=== PATIENT | male | born 1995 | race Caucasian/White ===

== ENCOUNTER → 2016-10-22 | Outpatient (CLI) | payer OTHER ==
[2016-10-22 15:51] LABS: HEMATOCRIT 45.8 % (42-52); MEAN CELL VOLUME 79.1 fL (80-100); MEAN CORPUSCULAR HEMOGLOBIN 26.6 pg (25-34); MEAN CORPUSCULAR HGB CONC 33.6 g/dl (32-36); MEAN PLATELET VOLUME 11.9 fL (7.4-10.4); PLATELET COUNT 204 K/uL (130-400); RED BLOOD COUNT 5.79 M/uL (4.7-6.1); WHITE BLOOD COUNT 7.87 K/uL (4.8-10.8)
[2016-10-22 16:23] LABS: ALT/SGPT 66 U/L (12-78); AST/SGOT 35 U/L (15-37); BLOOD UREA NITROGEN 6 mg/dl (7-18); BUN/CREATININE RATIO 7.5 (10-20); CALCIUM 8.9 mg/dl (8.5-10.1); CARBON DIOXIDE 30 mmol/L (21-32); CHLORIDE 107 mmol/L (98-107); GLUCOSE 86 mg/dl (70-99); POTASSIUM 4.2 mmol/L (3.5-5.1); SODIUM 142 mmol/L (136-145)
[2016-10-22 16:26] LABS: ALB/GLOB RATIO 1.4 (0.9-2); ALKALINE PHOSPHATASE 164 U/L (45-117); CHOLESTEROL 118 mg/dl (0-200); CHOLESTEROL/HDL RATIO 4.1; HDL CHOLESTEROL 29 mg/dl; LDL CHOLESTEROL CALCULATED 72 mg/dl; TRIGLYCERIDES 85 mg/dl (0-150); VERY LOW DENSITY LIPOPROT CALC 17 mg/dl
== END | disposition home or self-care (01) ==
LOC: C.LAB1850 14:40
PROVIDERS: ATTEND Internal Medicine
DX: Z00.00 Encounter for general adult medical examination without abnormal findings (principal); M06.9 Rheumatoid arthritis, unspecified

== ENCOUNTER → 2016-10-28 | Outpatient (CLI) | payer OTHER ==
--- NOTE | 2016-10-28 15:39 | DIAGNOSTIC IMAGING REPORT ---
LEFT WRIST MIN 3 VIEWS ROUTINE CLINICAL HISTORY: RHEUMATOID ARTHRITIS pain. X-rays. COMPARISON: None. DISCUSSION: Moderate degenerative change throughout all major structures of the radiocarpal as well as intercarpal region. No marginal erosions. No abnormal soft tissue calcifications. Bony alignment is anatomic. There is no evidence for soft tissue swelling. IMPRESSION: Moderate degenerative change. No acute bony abnormality. Electronically signed by: Alex Peck M.D. 10/28/2016 3:36 PM Dictated Date/Time: 10/28/2016 3:36 PM
--- NOTE | 2016-10-28 15:40 | DIAGNOSTIC IMAGING REPORT ---
LEFT HIP UNILATERAL 2 VIEWS CLINICAL HISTORY: QSTEOARTHRISTIS OF HIPS pain COMPARISON: None. DISCUSSION: Moderate flattening of the superior articular surface of the femoral head. Mild reactive sclerosis and flattening of the superior acetabular margin. This appears represent a component of degenerative change superimposed upon pre-existing dysplastic change. There is no evidence for acetabular protrusion. There is no evidence for soft tissue swelling. IMPRESSION: Moderate degenerative change left hip superimposed upon pre-existing dysplastic change. No acute process. Electronically signed by: Alex Peck M.D. 10/28/2016 3:38 PM Dictated Date/Time: 10/28/2016 3:37 PM
--- NOTE | 2016-10-28 15:40 | DIAGNOSTIC IMAGING REPORT ---
RIGHT WRIST 4 VIEWS CLINICAL HISTORY: Rheumatoid arthritis. FINDINGS: 4 views of the right wrist are obtained. No prior studies are available for comparison at the time of dictation. The skeletal structures are well mineralized. No fracture is seen. The joint spaces of the wrist are well-maintained. No bony erosion is seen. The overlying soft tissues are within normal limits. IMPRESSION: Unremarkable radiographic assessment of the right wrist. Electronically signed by: Odin Perkins M.D. 10/28/2016 3:37 PM Dictated Date/Time: 10/28/2016 3:37 PM
--- NOTE | 2016-10-28 15:41 | DIAGNOSTIC IMAGING REPORT ---
RIGHT HIP UNILATERAL 2 VIEWS CLINICAL HISTORY: QSTEOARTHRISTIS OF HIPS Right pain COMPARISON: None. DISCUSSION: Moderate degenerative change right hip. Moderate flattening of the articular services of the femoral head as well as the superior acetabular margin. Mild peripheral osteophytic reaction the acetabular margin. No evidence for acetabular protrusion. There is no evidence for soft tissue swelling. IMPRESSION: Degenerative change right hip superimposed upon pre-existing dysplastic change. No acute process. Electronically signed by: Alex Peck M.D. 10/28/2016 3:39 PM Dictated Date/Time: 10/28/2016 3:38 PM
--- NOTE | 2016-10-28 15:41 | DIAGNOSTIC IMAGING REPORT ---
RIGHT KNEE 3 VIEWS CLINICAL HISTORY: Osteoarthritis. FINDINGS: AP, lateral, and sunrise views of the right knee are obtained. No prior studies are available for comparison at the time of dictation. The skeletal structures are well mineralized. No fracture is seen. There is mild degenerative narrowing in the medial and lateral compartments. Moderate degenerative narrowing is seen at the patellofemoral articulation. No erosive change is identified. There is no large joint effusion. The overlying soft tissues are within normal limits. IMPRESSION: Age advanced degenerative change as above. No acute bony abnormality is seen. Electronically signed by: Odin Perkins M.D. 10/28/2016 3:39 PM Dictated Date/Time: 10/28/2016 3:38 PM
--- NOTE | 2016-10-28 15:43 | DIAGNOSTIC IMAGING REPORT ---
LEFT KNEE 3 VIEWS CLINICAL HISTORY: QSTEOARTHRISTIS OF HIPS pain COMPARISON: None. DISCUSSION: Rather significant degenerative change articular services of all major joint compartments. Moderate reactive osteophytic changes throughout. No significant joint effusion. No evidence for fracture. There is no evidence for soft tissue swelling. IMPRESSION: Moderate to rather significant degenerative change of all major joint compartments. No acute process. Electronically signed by: Alex Peck M.D. 10/28/2016 3:41 PM Dictated Date/Time: 10/28/2016 3:39 PM
== END ==
LOC: C.RAD1850 14:59
PROVIDERS: ATTEND Internal Medicine Rheumatology
DX: M06.9 Rheumatoid arthritis, unspecified (principal); M17.10 Unilateral primary osteoarthritis, unspecified knee; M16.0 Bilateral primary osteoarthritis of hip

== ENCOUNTER → 2016-11-11 | Outpatient (CLI) | payer OTHER | END | disposition home or self-care (01) | LOC: C.LAB1850 12:39 | PROVIDERS: ATTEND Internal Medicine | DX: R74.8 Abnormal levels of other serum enzymes (principal) ==

== ENCOUNTER → 2017-03-18 | Outpatient (CLI) | payer OTHER | END | disposition home or self-care (01) | LOC: C.LAB1850 15:52 | PROVIDERS: ATTEND Internal Medicine Rheumatology | DX: M08.90 Juvenile arthritis, unspecified, unspecified site (principal); M17.10 Unilateral primary osteoarthritis, unspecified knee; E55.9 Vitamin D deficiency, unspecified; M16.0 Bilateral primary osteoarthritis of hip ==